=== PATIENT | female | born 1980 | race Two or more races ===

== ENCOUNTER 2019-08-22 07:00 | Day surgery (SDC) | payer OTHER ==
[~2019-08-22] VITALS: Ht 157.5 cm; Wt 77.1 kg
[~2019-08-22 07:00] MED LIST: TOPROL XL25 M1 PO
[2019-08-22] MEDS ORDERED: MIRALAX17 GM PO (15:51)
[2019-08-22] MEDS ORDERED: ZOFRAN4 MG PO (15:51)
[2019-08-22] MEDS ORDERED: NEURONTIN300 MG PO (15:51)
[2019-08-22] MEDS ORDERED: TYLENOL-CODEINE1 TA1 PO (15:51)
[2019-08-22] MEDS ORDERED: KETO10TA2 PO (15:51)
== END 2019-08-22 13:00 | disposition home or self-care (01) ==
LOC: CIR.AMB 07:00 → EDSTATUS 11:15 → SURH 11:15 → O/R 11:33 → SURH 11:33 → CIR.AMB 13:00 → SURH 14:00 → O/R 19:30
DX: K42.0 Umbilical hernia with obstruction, without gangrene (principal); K43.0 Incisional hernia with obstruction, without gangrene; I10 Essential (primary) hypertension

== ENCOUNTER 2021-08-17 09:02 | Outpatient (CLI) | payer OTHER ==
[~2021-08-17 09:02] MED LIST changes: +KETO10TA2 PO; +MIRALAX17 GM PO; +NEURONTIN300 MG PO; +TYLENOL-CODEINE1 TA1 PO; +ZOFRAN4 MG PO
== END 2021-08-17 09:08 | disposition home or self-care (01) ==
LOC: SONOGRAMA 09:02
PROVIDERS: ATTEND Obstetrics & Gynecology
DX: N93.8 Other specified abnormal uterine and vaginal bleeding (principal)

== ENCOUNTER → 2025-01-14 | Emergency (ER) | payer OTHER ==
[~2025-01-14] VITALS: Ht 157.5 cm; Wt 86.2 kg
[~2025-01-14] MED LIST changes: +AMOX1TAB5
[2025-01-14 16:29] LABS: HEMATOCRIT 40.8 % (36.0-45.00); HEMOGLOBIN 13.3 g/dL (12.0-15.00); MEAN CELL VOLUME 77.4 fL (80.00-100.00); MEAN CORPUSCULAR HEMOGLOBIN 25.2 pg (27.00-32.0); MEAN CORPUSCULAR HGB CONC 32.6 g/dl (32.0-36.0); PLATELET COUNT 414 K/uL (150-450); RED BLOOD COUNT 5.27 M/uL (4.00-6.00); RED CELL DISTRIBUTION WIDTH 20.8 % (11.5-14.5)
[2025-01-14 16:52] LABS: ABG PH 7.468 (7.35-7.45); ABG PO2 78.8 mmHg (80-100); ABG pCO2 36.2 mmHg (35-45); BASE EXCESS 2.2 mmol/l; BICARBONATE 25.6 mmol/l (23-25); SaO2 96.4 %; Tco2 26.7 mmol/l
[2025-01-14 17:04] LABS: INFLUENZA A AG NEGATIVE (NEGATIVE)
[2025-01-14 17:16] LABS: allen test SATISFACTORY; puncture site RADIAL RIGHT
[2025-01-14 17:17] LABS: mode ROOM AIR; o2 21 %
== END | disposition home or self-care (01) ==
LOC: ER 13:44
PROVIDERS: General Practice
DX: R53.83 Other fatigue (principal); Z88.8 Allergy status to other drugs, medicaments and biological substances; B34.9 Viral infection, unspecified